=== PATIENT | male | born 1955 | race Caucasian/White ===

== ENCOUNTER 2020-03-06 12:21 | Outpatient (REF) | payer MEDICARE, SELFPAY ==
[2020-03-06 13:34] LABS: Prostate Specific Antigen 0.11 ng/mL (<0.05-4.0)
[2020-03-11 16:12] LABS: Testosterone, Free 47.7 pg/mL (35.0-155.0); Testosterone, Total 329 ng/dL (250-1100)
== END 2020-03-06 12:22 | disposition home or self-care (01) ==
LOC: HO.LAB 12:21
PROVIDERS: PCP Internal Medicine; Visit Provider Urology
DX: R33.9 Retention of urine, unspecified (principal)
CPT/HCPCS: 84153; 84402; 84403

== ENCOUNTER 2020-06-20 06:28 | Outpatient (REF) | payer MEDICARE, SELFPAY ==
[2020-06-20 07:23] LABS: Hematocrit 38.3 % (42-52); Hemoglobin 12.6 g/dl (14.0-18.0); Mean Corpuscular HGB Conc 32.9 g/dl (31.0-36.0); Mean Corpuscular Hemoglobin 30.6 pg (27.0-33.0); Mean Platelet Volume 9.4 fL (9.4-12.4); Platelet Count 272 X10*3/uL (160-400); Red Blood Count 4.12 X10*6/uL (4.60-5.80); Red Cell Distribution Width 13.9 % (11.0-16.0); White Blood Count 4.7 X10*3/uL (4.8-10.8)
[2020-06-20 08:15] LABS: Alanine Aminotransferase 16 U/L (0-40); Alkaline Phosphatase 74 U/L (39-117); Anion Gap 14 (12-20); Aspartate Amino Transferase 19 U/L (5-37); Bilirubin Direct 0.3 mg/dL (0.0-0.5); Blood Urea Nitrogen 21 mg/dL (9-16); Calcium 8.8 mg/dL (8.4-10.2); Carbon Dioxide 27 mmol/L (22-29); Chloride 102 mmol/L (96-108); Cholesterol 160 mg/dL; Estimated Glomerular Filt Rate > 60; Glucose Random 124 mg/dL (60-115); HDL Cholesterol 55 mg/dL; LDL Cholesterol Calculated 85 mg/dl; Potassium 4.2 mmol/l (3.3-5.1); Sodium 139 mmol/L (135-145); Total Protein 6.6 g/dL (6.5-8.0); Triglycerides 102 mg/dL
[2020-06-20 08:24] LABS: Thyroid Stimulating Hormone 3.33 uIU/mL (0.32-4.0)
== END 2020-06-20 06:29 | disposition home or self-care (01) ==
LOC: HO.LAB 06:28
PROVIDERS: PCP Internal Medicine; Visit Provider Internal Medicine
DX: E78.5 Hyperlipidemia, unspecified (principal); I10 Essential (primary) hypertension; R73.02 Impaired glucose tolerance (oral)
CPT/HCPCS: 36415; 80048; 80061; 80076; 84443; 85027

== ENCOUNTER 2021-01-05 12:56 | Outpatient (REF) | payer MEDICARE, SELFPAY ==
[2021-01-05 14:08] LABS: Prostate Specific Antigen 0.26 ng/mL (<0.05-4.0)
[2021-01-12 12:01] LABS: Testosterone, Total 338 ng/dL (250-1100)
== END 2021-01-05 12:57 | disposition home or self-care (01) ==
LOC: HO.LAB 12:56
PROVIDERS: PCP Internal Medicine; Visit Provider Urology
DX: C61 Malignant neoplasm of prostate (principal)
CPT/HCPCS: 36415; 84153; 84403

== ENCOUNTER 2021-06-25 10:37 | Outpatient (REF) | payer MEDICARE, SELFPAY ==
[2021-06-25 12:06] LABS: Hematocrit 36.5 % (42.0-52.0); Hemoglobin 11.9 g/dl (14.0-18.0); Mean Corpuscular HGB Conc 32.6 g/dl (31.0-36.0); Mean Corpuscular Hemoglobin 30.7 pg (27.0-33.0); Mean Corpuscular Volume 94.3 fL (80.0-98.0); Mean Platelet Volume 9.7 fL (9.4-12.4); Platelet Count 253 X10*3/uL (160-400); Red Blood Count 3.87 X10*6/uL (4.60-5.80); Red Cell Distribution Width 13.8 % (11.0-16.0); White Blood Count 5.1 X10*3/uL (4.8-10.8)
[2021-06-25 12:34] LABS: Alanine Aminotransferase 22 U/L (0-40); Albumin Level 3.9 g/dL (3.5-5.0); Alkaline Phosphatase 71 U/L (39-117); Anion Gap 10 (12-20); Aspartate Amino Transferase 19 U/L (5-37); Bilirubin Direct 0.3 mg/dL (0.0-0.5); Bilirubin Total 0.6 mg/dL (0.0-1.0); Blood Urea Nitrogen 14 mg/dL (9-16); Carbon Dioxide 30 mmol/L (22-29); Chloride 104 mmol/L (96-108); Cholesterol 154 mg/dL; Estimated Glomerular Filt Rate > 60; Glucose Random 106 mg/dL (60-115); HDL Cholesterol 52 mg/dL; LDL Cholesterol Calculated 89 mg/dl; Potassium 3.9 mmol/L (3.3-5.1); Sodium 140 mmol/L (135-145); Total Protein 6.4 g/dL (6.5-8.0); Triglycerides 67 mg/dL
[2021-06-25 12:56] LABS: Thyroid Stimulating Hormone 2.34 uIU/mL (0.32-4.0)
[2021-06-25 13:00] LABS: Appearance Urine CLEAR; Color Urine YELLOW; Glucose Urine UA NEG (NEG); Leukocyte Esterase Urine NEG (NEG); Nitrite Urine NEG (NEG); Urine Blood NEG (NEG); Urine Ketones NEG (NEG); Urine Protein NEG (NEG-TRACE)
== END 2021-06-25 10:38 | disposition home or self-care (01) ==
LOC: HO.LAB 10:37
PROVIDERS: PCP Internal Medicine; Visit Provider Internal Medicine
DX: E78.00 Pure hypercholesterolemia, unspecified (principal); I10 Essential (primary) hypertension
CPT/HCPCS: 36415; 80048; 80061; 80076; 81003; 84443; 85027

== ENCOUNTER 2022-03-15 13:33 | Outpatient (REF) | payer MEDICARE, SELFPAY ==
[2022-03-15 14:58] LABS: Prostate Specific Antigen 0.29 ng/mL (<0.05-4.0)
== END 2022-03-15 13:34 | disposition home or self-care (01) ==
LOC: HO.LAB 13:33
PROVIDERS: PCP Internal Medicine; Visit Provider Urology
DX: Z12.5 Encounter for screening for malignant neoplasm of prostate (principal); C61 Malignant neoplasm of prostate
CPT/HCPCS: 36415; 84153

== ENCOUNTER 2022-07-04 10:38 | Outpatient (REF) | payer MEDICARE, SELFPAY ==
[2022-07-04 12:23] LABS: Hematocrit 36.5 % (42.0-52.0); Hemoglobin 12.3 g/dl (14.0-18.0); Mean Corpuscular HGB Conc 33.7 g/dl (31.0-36.0); Mean Corpuscular Hemoglobin 30.9 pg (27.0-33.0); Mean Corpuscular Volume 91.7 fL (80.0-98.0); Mean Platelet Volume 9.3 fL (9.4-12.4); Platelet Count 260 X10*3/uL (160-400); Red Blood Count 3.98 X10*6/uL (4.60-5.80); Red Cell Distribution Width 14.1 % (11.0-16.0); White Blood Count 5.3 X10*3/uL (4.8-10.8)
[2022-07-04 13:10] LABS: Alanine Aminotransferase 23 U/L (0-40); Albumin Level 4.2 g/dL (3.5-5.0); Alkaline Phosphatase 75 U/L (39-117); Anion Gap 15 (12-20); Aspartate Amino Transferase 23 U/L (5-37); Bilirubin Direct 0.3 mg/dL (0.0-0.5); Blood Urea Nitrogen 21 mg/dL (9-16); Calcium 9.2 mg/dL (8.4-10.2); Carbon Dioxide 28 mmol/L (22-29); Chloride 105 mmol/L (96-108); Cholesterol 181 mg/dL; Estimated Glomerular Filt Rate > 60; Glucose Random 105 mg/dL (60-115); HDL Cholesterol 63 mg/dL; LDL Cholesterol Calculated 107 mg/dl; Potassium 4.4 mmol/L (3.3-5.1); Sodium 144 mmol/L (135-145); Total Protein 6.7 g/dL (6.5-8.0); Triglycerides 59 mg/dL
[2022-07-04 13:15] LABS: Prostate Specific Antigen Scr 0.31 ng/mL (<0.05-4.0); Thyroid Stimulating Hormone 2.38 uIU/mL (0.32-4.0)
== END 2022-07-04 10:39 | disposition home or self-care (01) ==
LOC: HO.LAB 10:38
PROVIDERS: PCP Internal Medicine; Visit Provider Internal Medicine
DX: Z12.5 Encounter for screening for malignant neoplasm of prostate (principal); E78.00 Pure hypercholesterolemia, unspecified; I10 Essential (primary) hypertension; C61 Malignant neoplasm of prostate
CPT/HCPCS: 36415; 80048; 80061; 80076; 84153; 84443; 85027

== ENCOUNTER 2023-01-09 10:08 | Outpatient (AMB) | payer MEDICARE, SELFPAY ==
--- NOTE | 2023-01-09 10:16 | A.OFFPC_ITS ---
Vital Signs 01/09/23 10:18 Height 5 ft 10 in Weight 182 lb 6 oz BMI 26.2 BP 130/78 Blood Pressure Location Lt brachial Position Sitting Pulse 63 Pulse Source Pulse Oximeter Pulse Oximetry (%) 99 Oxygen Delivery Method Room Air Intake Visit Reasons: Hypertension Intake Note: Patient is here to follow up on HTN. Medical Lab Director Required: No Pearl Digger: Not Required per policy Accompanied by: Self / Same As Patient Allergies No Known Allergies Allergy (Verified 01/13/23 06:15) Medication List - Last Reconciled 01/13/23 by Demario Begum MD amlodipine 5 mg PO DAILY 30 days atorvastatin 80 mg PO DAILY blood pressure test kit-medium As directed lisinopril-hydrochlorothiazide 20-25 mg 1 tab PO DAILY metoprolol succinate ER 50 mg PO DAILY Tobacco use date assessed: 01/09/23 Fall risk assessment: No Falls in past year Last assessed Fall Risk: 01/09/23 Dental Screening Dental Screen Date: 01/09/23 Did you have a dental visit in the last 12 months?: Yes Did you have a dental problem in the last 6 months where you did not have access to dental care?: No Was dental information given to patient?: Patient has dentist HPI Hypertension HPI Details 67-year-old male presents to the office to discuss his chronic medical conditions. Patient is compliant with all his medications and reporting no side effects. Able to function and do all activities of daily living. Patient does not check his blood pressures often at home. He does have history of left hip pain and may require surgery in future. [facility] Medical History (Updated 01/13/23 @ 06:20 by Demario Begum MD) Essential (primary) hypertension Hip arthritis Hypercholesterolemia Prostate cancer Surgical History History of bilateral cataract extraction History of cervical spinal surgery History of colonoscopy History of tonsillectomy S/P right coronary artery (RCA) stent placement Family History Father No problems noted. Mother Breast cancer Heart disease Brother In good health Son In good health Social History Housing: House Alcohol intake: current Alcohol intake frequency: a few times a week Patient Tobacco Use Status: Former Tobacco user Tobacco use type: Cigarette e-Cigarette/Vaping Use: Never Used Second Hand Smoke Exposure: Yes service: No Current occupational status: retired Cognitive needs: No Hearing needs: No Vision needs: No Questionnaire Thrive Questionnaire Date Thrive assessed: 07/11/22 VITO-7 AMB Questionnaire VITO-7 Date VITO - 7 assessed: 07/11/22 Source: Developed by Drs. Dheeraj Francis, Brenna Golden, Sean Fritz and colleagues, with an educational luzmaria from [employer]. Physical exam (Primary Care) Vital Signs: Last Vital Signs Pulse 63 01/09/23 10:18 BP 130/78 01/09/23 10:18 Pulse Ox 99 01/09/23 10:18 Oxygen Delivery Method Room Air 01/09/23 10:18 Care Plan Goal for BP management: Blood pressure is in range. Continue medications at same dosage. BMI result Body Mass Index 26.2 Tobacco/Smoking Status: Tobacco use Status Tobacco use date assessed 01/09/23 01/09/23 10:19 Patient Tobacco Use Status Former Tobacco user 01/09/23 10:19 Tobacco use type Cigarette 01/09/23 10:19 e-Cigarette/Vaping Use Never Used 01/09/23 10:19 Thrive Assessment: Date of Thrive Assessment Date Thrive assessed 07/11/22 01/09/23 10:19 Advance Care Planning discussion: Exists, not on file Date of discussion: 01/09/23 Who was present: Patient. Forms completed: Health Care Proxy and MOLST Actual minutes spent: 5 Const General: cooperative, healthy appearing and comfortable HENNM Head: Yes normal to inspection and Yes atraumatic Eyes General: appearance normal, both eyes and all related structures Neck Neck: Yes normal visual inspection and Yes full ROM Chest Chest palpation & inspection: normal inspection of the chest Resp Effort & Inspection: normal respiratory effort Auscultation: clear to auscultation bilaterally Cardio Jugular venous distension: no JVD Palpation: normal PMI Rate: regular rate Heart sounds: S1 normal heart sound present and S2 normal heart sound present GI Palpation (GI): Soft to palpation and No hepatosplenomegaly present Extrem General: Yes normal to inspection and Yes full ROM Assessment and Plan Assessment & Plan (1) Hip arthritis: Code(s): M16.10 - Unilateral primary osteoarthritis, unspecified hip Plan: This condition is stable at the moment. Not interfering in his quality of life. Patient was advised to use Tylenol intermittently. (2) Essential (primary) hypertension: Code(s): I10 - Essential (primary) hypertension Plan: Blood pressure is in range. Continue medications at same dosage. (3) Hypercholesterolemia: Code(s): E78.00 - Pure hypercholesterolemia, unspecified Plan: LDL is in range. Continue medications at same dosage. (4) Prostate cancer: Code(s): C61 - Malignant neoplasm of prostate Plan: This condition is being evaluated by his urologist. Coding Level of Care Code Est Pt Level 4 (31936) Diagnoses Hip arthritis M16.10 Essential (primary) hypertension I10 Hypercholesterolemia E78.00 Prostate cancer C61 Additional Codes Vital Signs *Quality* - Advance Care Planning discussion: Exists, not on file ([id number])
[2023-01-09 10:18] VITALS: BP 130/78; PULSE 63; O2SAT 99; BMI 26.2
== END 2023-01-09 11:05 | disposition home or self-care (01) ==
PROVIDERS: PCP Internal Medicine; Visit Provider Internal Medicine
DX: M16.10 Unilateral primary osteoarthritis, unspecified hip (principal); I10 Essential (primary) hypertension; E78.00 Pure hypercholesterolemia, unspecified; C61 Malignant neoplasm of prostate; Z00.00 Encounter for general adult medical examination without abnormal findings
CPT/HCPCS: 1123F; 99214

== ENCOUNTER 2023-07-31 07:45 | Outpatient (AMB) | payer MEDICARE, SELFPAY ==
--- NOTE | 2023-07-31 07:55 | A.OFFVIS_ITS ---
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 [facility] Medical History Hip arthritis Hypercholesterolemia Prostate cancer Essential (primary) hypertension Surgical History History of colonoscopy S/P right coronary artery (RCA) stent placement History of cervical spinal surgery History of bilateral cataract extraction History of tonsillectomy Family History Father No problems noted. Mother Breast cancer Heart disease Brother In good health Son In good health Social History Housing: House Alcohol intake: current Alcohol intake frequency: a few times a week Patient Tobacco Use Status: Former Tobacco user Tobacco use type: Cigarette e-Cigarette/Vaping Use: Never Used Second Hand Smoke Exposure: Yes service: No Current occupational status: retired Cognitive needs: No Hearing needs: No Vision needs: No Questionnaire Medicare Wellness Checkup [age] What gender do you identify with?: male During the past 4 weeks, how much have you been bothered by emotional problems such as feeling anxious, depressed, irritable, sad or downhearted, and blue?: not at all During the past 4 weeks, has your physical & emotional health limited your social activities with family, friends, neighbors, or groups?: slightly During the past 4 weeks, how much bodily pain have you generally had?: mild pain During the past 4 weeks, was someone available to help you if you needed & wanted help?: yes, as much as I wanted During the past 4 weeks, what was the hardest physical activity you could do for at least 2 minutes?: very light Can you get to places out of walking distance without help? (For eg., can you travel alone on buses, taxis or drive your car?): Yes Can you go shopping for groceries or clothes without someone's help?: Yes Can you prepare your own meals?: Yes Can you do your housework without help?: Yes Because of any health problems, do you need the help of another person with your personal care needs such as eating, bathing, dressing or getting around the house?: No Can you handle your own money without help?: Yes During the past 4 weeks, how would you rate your health in general?: good During the past 4 weeks how have things been going for you?: pretty well Are you having difficulties driving your car?: no Do you always fasten your seat belt when you are in a car?: yes, usually During past 4 weeks, have you been bothered by the following: never: Falling or dizzy when standing up, Sexual problems?, Trouble eating well?, Teeth or denture problems? and Problems using the telephone? and seldom: Tiredness or fatigue? Have you fallen 2 or more times in the past year?: No Are you afraid of falling?: No Are you a smoker?: no During the past 4 weeks, how many drinks of wine, beer, or other alcoholic beverages did you have?: 2-5 drinks per week Do you exercise for about 20 minutes 3 or more times a week?: yes, most of the time Have you been given information to help with the following?: no: Hazards in your house that might hurt you? and no: Keeping track of your medications? How often do you have trouble taking medicines the way you have been told to take them?: I always take medicine as prescribed How confident are you that you can control & manage most of your health problems?: very confident What is your race?: White Mini Mental State Exam (MMSE) Orientation What is the (year) (season) (date) (day) (month)?: year, season, date and day Score Score: 4 Activity of Daily Living Bathing - sponge bath, tub bath or shower: receives no assistance (gets in/out by self, if usual bathing means Dressing - getting clothes from closets & drawers, including inner/outer garments & fasteners.: gets clothes & gets completely dressed without help Toileting - going to the 'toilet room' for urine/bowel elimination & cleaning self/arranging clothes: goes to toilet room, cleans self, arranges clothes without help Transfer: moves in & out of bed and chair without help (may use support object) Continence: controls urination/bowel movements completely by self Feeding: feeds self without help Total Score: 0 Information obtained from: patient Using telephone: independent Traveling: independent Shopping: independent Preparing meals: independent Housework: independent Taking medicine: independent Managing money: independent PHQ-9 Over the last 2 weeks, how often have you been bothered by any of the following problems? 1. Little interest or pleasure in doing things: not at all 2. Feeling down, depressed, or hopeless: not at all 3. Trouble falling or staying asleep, or sleeping too much: not at all 4. Feeling tired or having little energy: not at all 5. Poor appetite or overeating: not at all 6. Feeling bad about yourself - or that you are a failure or have let yourself or your family down: not at all 7. Trouble concentrating on things, such as reading the newspaper or watching television: not at all 8. Moving or speaking so slowly that other people could have noticed. Or the opposite - being so fidgety or restless that you have been moving around a lot more than usual: not at all 9. Thoughts that you would be better off or of hurting yourself in some way: not at all Total score: 0 Source: Developed by Drs. Dheeraj Francis, Brenna Golden, Sean Fritz and colleagues, with an educational luzmaria from [employer]. AUDIT C Alcohol Use Questionnaire (AUDIT-C) 1. How often do you have a drink containing alcohol?: 2-4 times a month 2. How many drinks containing alcohol do you have on a typical day when you are drinking?: 1 or 2 3. How often do you have six or more drinks on one occasion?: Never Total Score: 2 Thrive Questionnaire Date Thrive assessed: 07/31/23 I am a: Patient What is your living situation today?: I have a steady place to live Within the past 12 months, did the food you bought not last and you didn't have the money to get more?: Never true Within the past 12 months, did you worry whether your food would run out before you got money to buy more?: Never true Do you have trouble paying for medicines?: No Do you have trouble getting transportation to medical appointments?: No Do you have trouble paying your heating and electricity bill?: No Do you have trouble taking care of your child, family member or friend?: No Do you have trouble with day-to-day activities such as bathing, preparing meals, shopping, managing finances, etc.?: No Are you currently unemployed and looking for a job?: No Are you interested in more education?: No Please select the resources that you would like help with: None Currently or been in a relationship where the following occur: no concerns reported THRIVE Score: 0 Fall Risk Assessment Fall Risk Assessment Fall risk assessment: 1 Fall in past year VITO-7 AMB Questionnaire VITO-7 Date VITO - 7 assessed: 07/31/23 Feeling nervous, anxious, or on edge: 0 = Not at all Not being able to stop or control worryin = Not at all Worrying too much about different things: 0 = Not at all Trouble relaxin = Not at all Being so restless that it is hard to sit still: 0 = Not at all Becoming easily annoyed or irritable: 0 = Not at all Feeling afraid as if something awful might happen: 0 = Not at all Total VITO-7 score (0-4 normal; 5-9 mild; 10-14 moderate; 15-21 severe): 0 Source: Developed by Drs. Dheeraj Francis, Brenna Golden, Sean Fritz and colleagues, with an educational luzmaria from [employer]. Physical Exam Vital Signs: Last Vital Signs Pulse 76 07/31/23 07:57 BP 130/74 07/31/23 07:57 Pulse Ox 98 07/31/23 07:57 Oxygen Delivery Method Room Air 07/31/23 07:57 BMI result Body Mass Index 26.3 Balance: Normal Romberg: Negative Tandem Walk: Able to Walk and Turn: Able to Rise from sit to stand: Able to Hearing Whisper test: Pass Assessment & Plan Assessment & Plan (1) Prostate cancer: Code(s): C61 - Malignant neoplasm of prostate Plan: Patient sees a urologist (2) Hypercholesterolemia: Code(s): E78.00 - Pure hypercholesterolemia, unspecified Plan: Blood work has been ordered. Patient has been encouraged to get it done. He would like to go to [place] to get the blood work done. (3) Essential (primary) hypertension: Code(s): I10 - Essential (primary) hypertension Plan: Blood pressure is in range. Continue current medications. (4) Adult general medical exam: Code(s): Z00.00 - Encounter for general adult medical examination without abnormal findings Plan: Blood work has been ordered. Quality Reporting (2019) Fall Risk Screening ([facility] 139) Fall risk assessment: 1 Fall in past year Depression/Bipolar (159/160/161/177) PHQ-9: Total score: 0 Coding Level of Care Code Medicare Subsequent (G0439) Diagnoses Prostate cancer C61 Hypercholesterolemia E78.00 Essential (primary) hypertension I10 Adult general medical exam Z00.00
[2023-07-31 07:57] VITALS: BP 130/74; PULSE 76; O2SAT 98; BMI 26.3
== END 2023-07-31 08:17 | disposition home or self-care (01) ==
PROVIDERS: PCP Internal Medicine; Visit Provider Internal Medicine
DX: C61 Malignant neoplasm of prostate (principal); E78.00 Pure hypercholesterolemia, unspecified; I10 Essential (primary) hypertension; Z00.00 Encounter for general adult medical examination without abnormal findings
CPT/HCPCS: G0439

== ENCOUNTER 2024-07-29 10:04 | Outpatient (REF) | payer MEDICARE, SELFPAY ==
[2024-07-29 11:17] LABS: Hematocrit 35.6 % (42.0-52.0); Hemoglobin 12.1 g/dl (14.0-18.0); Mean Corpuscular Hemoglobin 31.3 pg (27.0-33.0); Mean Platelet Volume 9.6 fL (9.4-12.4); Platelet Count 257 X10*3/uL (160-400); Red Blood Count 3.87 X10*6/uL (4.60-5.80); Red Cell Distribution Width 13.6 % (11.0-16.0); White Blood Count 4.7 X10*3/uL (4.8-10.8)
[2024-07-29 11:45] LABS: Appearance Urine Clear; Color Urine Yellow; Glucose Urine UA Negative (Negative); Leukocyte Esterase Urine Negative (Negative); Nitrite Urine Negative (Negative); PH 5.5 (5.0-9.0); Urine Blood Negative (Negative); Urine Ketones Negative (Negative); Urine Protein Negative (Neg-Trace)
[2024-07-29 12:05] LABS: Alanine Aminotransferase 24 U/L (0-40); Alkaline Phosphatase 75 U/L (39-117); Anion Gap 12 (12-20); Aspartate Amino Transferase 26 U/L (5-37); Bilirubin Direct 0.3 mg/dL (0.0-0.5); Blood Urea Nitrogen 21 mg/dL (9-16); Calcium 9.2 mg/dL (8.4-10.2); Carbon Dioxide 26 mmol/L (22-29); Chloride 106 mmol/L (96-108); Cholesterol 152 mg/dL (<200); Estimated Glomerular Filt Rate > 60; Glucose Random 104 mg/dL (60-115); HDL Cholesterol 54 mg/dL (>40); LDL Cholesterol Calculated 85 mg/dL (<100); Potassium 3.9 mmol/L (3.3-5.1); Sodium 140 mmol/L (135-145); Triglycerides 67 mg/dL (<150)
[2024-07-29 12:06] LABS: Prostate Specific Antigen Scr 0.24 ng/mL (<0.05-4.0)
== END 2024-07-29 10:05 | disposition home or self-care (01) ==
LOC: HO.LAB 10:04
PROVIDERS: PCP Internal Medicine; Visit Provider Internal Medicine
DX: E78.00 Pure hypercholesterolemia, unspecified (principal); I10 Essential (primary) hypertension; Z12.5 Encounter for screening for malignant neoplasm of prostate
CPT/HCPCS: 36415; 80048; 80061; 80076; 81003; 84153; 84443; 85027

== ENCOUNTER 2024-08-05 10:34 | Outpatient (AMB) | payer MEDICARE, SELFPAY ==
--- NOTE | 2024-08-05 11:06 | AM.OFFVISMDC ---
Intake Vital Signs 08/05/24 11:07 Height 5 ft 10 in Weight 182 lb BMI 26.1 BP 130/72 Blood Pressure Location Lt brachial Position Sitting Pulse 66 Pulse Source Pulse Oximeter Pulse Oximetry (%) 98 Oxygen Delivery Method Room Air Intake Visit Reasons: AWV/Ear Cleaning Web Content Director Required: No Accompanied by: Self / Same As Patient Allergies No Known Allergies Allergy (Verified 08/05/24 11:13) Medication List - Last Reconciled 08/05/24 by Rachel Zapata PA-C amlodipine 5 mg PO DAILY 30 days atorvastatin 80 mg PO DAILY blood pressure test kit-medium As directed lisinopril-hydrochlorothiazide 20-25 mg 1 tab PO DAILY metoprolol succinate ER 50 mg PO DAILY HPI HPI Comments History of Present Illness Details Patient is here for an Annual Wellness Visit today. List of all patient's Health Care Provider's PCP Dr. Begum Urologist [facility] urology unsure of the doctor's name Patient sees repair servicer at [facility] unsure of the doctor's name Reviewed past medical history- yes Reviewed surgical / hospitalization history- yes Reviewed family history- yes Reviewed current medications- yes Review all current providers patient is actively being followed by- yes Risk Factors Do exercise? Yes How many days per week? 5-6 Minutes per episode? 1 hour Do you larry regularly? yes Do go to the dentist yearly? yes just went yesterday or every 6 months? yes Do use a seatbelt in the vehicle? yes Sexual health: Do you use protection such as condom's? yes Home safety Throw rugs? Yes Grab bars? Yes in the shower Raised toilet seat? No Working smoke detectors? Yes Activities of daily living Do you have urinary incontinence? no Difficulty bathing or showering? No ?Difficulty dressing??No ?Difficulty grooming? No ?Difficulty feeding myself? No ?Difficulty using the toilet??No ?Difficulty getting in and out of bed??No ?Difficulty walking? No ?Receives help from other person's with any of the above tasks??No Instrumental activities of daily living Uses telephone -?Yes ?Gets to place out of walking distance- yes ?Who does the Food preparation?? patient prepares his own food or his ?Who goes shopping for groceries? pain both patient and his ?Can perform minor home maintenance-? both patient and his ?Can perform own laundry-? both patient and his ?Can perform own housework- both patient and ?Manages own money/Finances-? both patient and ?Transportation?? patient has his own car ?Do you Drive?? yes ?Do you Drive at Night?? yes ?Can you Manage own medications? yes If you can not manage your own medications, who does manage your medications?? patient can manage his own medications Fall risk assessment Fall risk? right no recent falls patient is not a fall risk Have you had any falls with injuries in the past year? no falls in the past year Have you had 2 or more falls in the past year? no falls in the past few Fall risk assessment: Visit History Last Wellness Visit: Date? If diabetic, last diabetic eye exam: Date? patient is not a diabetic Last hospitalization: If any? no recent hospitalizations Additonal Services needed/Case Management Referrals? Social? no Financial? no Medical referrals? no Education? Asthma? no COPD? no Diabetes? no Medication management? no Cognitive Status is Normal End of life planning Discussed advanced directives- Yes Member did not wish to discuss above? HCP: Imelda Schmitt Advanced directives on file? Not on file yet Discussed wishes expressed in advanced directives? patient undecided at this time Encouraged member to inform others about care preferences. [facility] Medical History (Updated 08/05/24 @ 13:13 by Rachel Zapata PA-C) Cerumen impaction Encounter for annual wellness exam in Medicare patient Hip arthritis Hypercholesterolemia Prostate cancer Essential (primary) hypertension Surgical History History of colonoscopy (~06/2021) S/P right coronary artery (RCA) stent placement History of cervical spinal surgery History of bilateral cataract extraction History of tonsillectomy Family History Father No problems noted. Mother Breast cancer Heart disease Brother In good health Son In good health Social History Housing: House Alcohol intake: current Alcohol intake frequency: a few times a week Patient Tobacco Use Status: Former Tobacco user Tobacco use type: Cigarette e-Cigarette/Vaping Use: Never Used Second Hand Smoke Exposure: Yes service: No Current occupational status: retired Cognitive needs: No Hearing needs: No Vision needs: No Questionnaire Medicare Wellness Checkup [age] What gender do you identify with?: male During the past 4 weeks, how much have you been bothered by emotional problems such as feeling anxious, depressed, irritable, sad or downhearted, and blue?: not at all During the past 4 weeks, has your physical & emotional health limited your social activities with family, friends, neighbors, or groups?: not at all During the past 4 weeks, how much bodily pain have you generally had?: no pain During the past 4 weeks, was someone available to help you if you needed & wanted help?: yes, as much as I wanted During the past 4 weeks, what was the hardest physical activity you could do for at least 2 minutes?: heavy Can you get to places out of walking distance without help? (For eg., can you travel alone on buses, taxis or drive your car?): Yes Can you go shopping for groceries or clothes without someone's help?: Yes Can you prepare your own meals?: Yes Can you do your housework without help?: Yes Because of any health problems, do you need the help of another person with your personal care needs such as eating, bathing, dressing or getting around the house?: No Can you handle your own money without help?: Yes During the past 4 weeks, how would you rate your health in general?: very good During the past 4 weeks how have things been going for you?: very well; could hardly better Are you having difficulties driving your car?: no Do you always fasten your seat belt when you are in a car?: yes, usually During past 4 weeks, have you been bothered by the following: never: Falling or dizzy when standing up, Sexual problems?, Trouble eating well?, Teeth or denture problems?, Problems using the telephone? and Tiredness or fatigue? Have you fallen 2 or more times in the past year?: No Are you afraid of falling?: No Are you a smoker?: no During the past 4 weeks, how many drinks of wine, beer, or other alcoholic beverages did you have?: 2-5 drinks per week Do you exercise for about 20 minutes 3 or more times a week?: yes, most of the time Have you been given information to help with the following?: yes: Keeping track of your medications? and no: Hazards in your house that might hurt you? How often do you have trouble taking medicines the way you have been told to take them?: I always take medicine as prescribed How confident are you that you can control & manage most of your health problems?: very confident What is your race?: White Mini Mental State Exam (MMSE) Orientation What is the (year) (season) (date) (day) (month)?: year, date, day and month Where are we (state) (county) (town or city) (hospital) (floor)?: hospital/clinic Registration Name of 3 unrelated objects clearly and slowly, then ask patient to repeat all 3 of them. (1st repeat determines score. Make sure they can repeat all three): object 1, object 2 and object 3 Attention & Calculation (CHOOSE ONE) Ask pt to begin with 100 & count backward by 7. Stop after 5 repeats. If pt cannot ask them to spell the word WORLD backward.: 93 Spell WORLD backwards (DLROW): 5 letters Recall Ask patient to repeat the 3 items from question #3.: object 1, object 2 and object 3 Language Show patient a wristwatch & ask what it is. Repeat for pencil.: pencil Ask the patient to repeat the phrase 'No ifs, ands, or buts' after you.: correct Ask the patient to 'take a piece of paper with their right hand' 'fold paper in half' 'place paper on floor': take paper in right hand, fold paper in half and place paper on floor Print the sentence 'CLOSE YOUR EYES' on a piece. If patient actually closes eyes then score.: followed written direction Give patient a blank piece of paper & ask to write a sentence. Score if it contains a noun & verb.: sentence contains subject and verb Ask patient to copy figure of intersecting pentagons exactly. Score if all 10 angles & 2 intersects are included.: all 10 angles present & 2 are intersected Score Score: 25 Activity of Daily Living Bathing - sponge bath, tub bath or shower: receives no assistance (gets in/out by self, if usual bathing means Dressing - getting clothes from closets & drawers, including inner/outer garments & fasteners.: gets clothes & gets completely dressed without help Toileting - going to the 'toilet room' for urine/bowel elimination & cleaning self/arranging clothes: goes to toilet room, cleans self, arranges clothes without help Transfer: moves in & out of bed and chair without help (may use support object) Continence: controls urination/bowel movements completely by self Feeding: feeds self without help Total Score: 0 Information obtained from: patient Using telephone: independent Traveling: independent Shopping: independent Preparing meals: independent Housework: independent Taking medicine: independent Managing money: independent PHQ-9 Over the last 2 weeks, how often have you been bothered by any of the following problems? 1. Little interest or pleasure in doing things: not at all 2. Feeling down, depressed, or hopeless: not at all 3. Trouble falling or staying asleep, or sleeping too much: not at all 4. Feeling tired or having little energy: not at all 5. Poor appetite or overeating: not at all 6. Feeling bad about yourself - or that you are a failure or have let yourself or your family down: not at all 7. Trouble concentrating on things, such as reading the newspaper or watching television: not at all 8. Moving or speaking so slowly that other people could have noticed. Or the opposite - being so fidgety or restless that you have been moving around a lot more than usual: not at all 9. Thoughts that you would be better off or of hurting yourself in some way: not at all Total score: 0 Depression Screening Interpretation: Negative Depression Screening Done: Yes 08380 - PHQ-9 Billing: Yes Source: Developed by Drs. Dheeraj Francis, Brenna Golden, Sean Fritz and colleagues, with an educational luzmaria from [employer]. Fall Risk Assessment Fall Risk Assessment Fall risk assessment: No Falls in past year AUDIT C Alcohol Use Questionnaire (AUDIT-C) 1. How often do you have a drink containing alcohol?: 2-3 times a week 2. How many drinks containing alcohol do you have on a typical day when you are drinking?: 1 or 2 3. How often do you have six or more drinks on one occasion?: Never Total Score: 3 Score Reviewed/Action Taken: No VITO-7 AMB Questionnaire VITO-7 Date VITO - 7 assessed: 08/05/24 Feeling nervous, anxious, or on edge: 0 = Not at all Not being able to stop or control worryin = Not at all Worrying too much about different things: 0 = Not at all Trouble relaxin = Not at all Being so restless that it is hard to sit still: 0 = Not at all Becoming easily annoyed or irritable: 0 = Not at all Feeling afraid as if something awful might happen: 0 = Not at all Total VITO-7 score (0-4 normal; 5-9 mild; 10-14 moderate; 15-21 severe): 0 Source: Developed by Drs. Dheeraj Francis, Brenna Golden, Sean Fritz and colleagues, with an educational luzmaria from [employer]. VITO-7 Assessment Billing VITO-7 Assessment Tool: VITO-7 Assessment 82697 Thrive Questionnaire Date Thrive assessed: 08/05/24 I am a: Patient What is your living situation today?: I have a steady place to live Within the past 12 months, did the food you bought not last and you didn't have the money to get more?: Never true Within the past 12 months, did you worry whether your food would run out before you got money to buy more?: Never true Do you have trouble paying for medicines?: No Do you have trouble getting transportation to medical appointments?: No Do you have trouble paying your heating and electricity bill?: No Do you have trouble taking care of your child, family member or friend?: No Do you have trouble with day-to-day activities such as bathing, preparing meals, shopping, managing finances, etc.?: No Are you currently unemployed and looking for a job?: No Are you interested in more education?: No Please select the resources that you would like help with: None Currently or been in a relationship where the following occur: No concerns reported THRIVE Score: 0 Review of Systems Const All systems reviewed & are unremarkable except as noted in HPI and below Physical Exam Vital Signs: Last Vital Signs Pulse 66 08/05/24 11:07 BP 130/72 08/05/24 11:07 Pulse Ox 98 08/05/24 11:07 Oxygen Delivery Method Room Air 08/05/24 11:07 BMI result Body Mass Index 26.1 HEENT Other: Hearing screening Whisper test- pass whisper test Eyes Other: vision screening- passed Other: urinary incontinence? No Neuro Other: balance- yes normal Romberg- yes normal tandem walk test- yes normal walk-in turned test- yes normal rise from sit to stand- yes normal Office Procedures Cerumen Removal From which ear canal was the cerumen removed: bilateral Removal: irrigation and otoscope w/curette Notes: patient tolerated procedure well [id number] Irrigation/Lavage (and with spoon curette-[id number]) Results AMB Hemoglobin A1c AMB Hemoglobin A1c 5.9 % Last Edit by ANIKA Bermudez on 08/05/24 11:55 Assessment & Plan Assessment & Plan (1) Encounter for annual wellness exam in Medicare patient: Code(s): Z00.00 - Encounter for general adult medical examination without abnormal findings (2) Basal cell carcinoma: Comment: s/p resection on back Code(s): C44.91 - Basal cell carcinoma of skin, unspecified Plan: Patient to continue being followed by [facility]. He is status post resection of 2 basal cell carcinomas. Condition is chronic and stable continue to monitor. (3) BPPV (benign paroxysmal positional vertigo): Code(s): H81.10 - Benign paroxysmal vertigo, unspecified ear Qualifiers: Laterality: bilateral Qualified Code(s): H81.13 - Benign paroxysmal vertigo, bilateral Plan: Patient denies any recent dizziness. Condition is chronic and stable continue to monitor. (4) Essential (primary) hypertension: Code(s): I10 - Essential (primary) hypertension Plan: Patient currently on amlodipine 5 mg daily, lisinopril -hydrochlorothiazide combo 25-25 mg daily, metoprolol extended release 50 mg. Blood pressure goal less than 130/80. Blood pressure at goal today. Condition is chronic and stable continue current regimen. (5) Hypercholesterolemia: Code(s): E78.00 - Pure hypercholesterolemia, unspecified Plan: Total cholesterol go less than 200. LDL goal <100. Total cholesterol on 07/29/2024 was 152. LDL was 85. At goal. Patient to continue atorvastatin 80 mg daily. Condition is chronic and stable continue to monitor. (6) Prostate cancer: Code(s): C61 - Malignant neoplasm of prostate Plan: Patient is being followed by [facility]. Condition is chronic and stable continue to monitor (7) Left ear hearing loss: Code(s): H91.92 - Unspecified hearing loss, left ear Qualifiers: Hearing loss type: sensorineural Contralateral hearing status: unspecified Qualified Code(s): H90.5 - Unspecified sensorineural hearing loss Plan: Condition is chronic and stable continue to monitor (8) Hip arthritis: Code(s): M16.10 - Unilateral primary osteoarthritis, unspecified hip Plan: Condition is chronic and stable continue to monitor (9) Cerumen impaction: Code(s): H61.20 - Impacted cerumen, unspecified ear Plan: patient is now status post bilateral cerumen impaction. Tympanic membranes post cerumen disimpaction visualized and intact not perforated. No complications. Patient tolerated procedure well. Plan Plan Patient was informed and verbally consented to the use of an ambient scribe for clinic note documentation during this visit. 1. Prostate Cancer - History The patient confirmed a history of prostate cancer. While there are no current complaints regarding this condition, I will continue to monitor his health closely during his annual wellness exams to ensure no recurrence or related complications. 2. Basal Cell Carcinoma The patient has a history of basal cell carcinoma located on the back and side of the back, which has yet to be excised. Hyperlipidemia: Content and Plan: The patient is on atorvastatin 80 mg daily, currently managing lipid levels, with recent cholesterol levels being well-managed. Anemia: Content and Plan: The patient has a history of chronic anemia but denied any symptoms such as black or bloody stools. Sexual Activity: Content and Plan: The patient is sexually active and engages in the use of condoms. He does not use control. Falls: Content and Plan: There are no reported recent falls within the past year. The patient is not identified as being at fall risk. End-of-life Planning: Content and Plan: Currently, the patient does not have advanced directives in place. However, he has identified his spouse, Ms. Imelda Schmitt, as his healthcare proxy. Control of Medical Resources: Content and Plan: The patient expressed that he does not currently feel the need for additional referrals for social work, finances, or medical resources. Problem Based Plan: - Prostate Cancer: Continue monitoring. - Follow-up with urologist at [facility] is ongoing. - History of removal of basal cell carcinoma with dermatology. - Maintain communication with regarding end-of-life preferences, including Full code or DNR/DNI status. - Essential Hypertension: Continue current medication regimen, including Amlodipine 5 mg, Atorvastatin 80 mg, Lisinopril/Hydrochlorothiazide 20/25 mg, and Metoprolol Extended-Release 50mg. - Hyperlipidemia: Continue taking Atorvastatin 80 mg. Lipid profile appears stable with good control. - Chronic Anemia: No acute concerns identified during the recent bloodwork. No reports of black or bloody stools. Monitor. 3. Hypertension The patient is currently on a regimen of amlodipine 5 mg, atorvastatin 80 mg, lisinopril 20/25 mg daily, and metoprolol 50 mg extended-release for the management of essential hypertension. The patient should seek to maintain regular follow-up appointments to ensure blood pressure remains well controlled. It is also beneficial for the patient to continue engaging in regular physical activity 5 to 6 times per week for approximately one hour per session. 4. Presence of artificial hip joint, bilateral The patient has a history of double hip replacement surgery. There are no current reports of complications, but the patient's mobility was assessed to ensure satisfactory recovery. I observed that the patient was able to stand up from a seated position without assistance and maintain normal balance during tandem walking. 5. Vertigo The patient has a history of experiencing episodes of vertigo. While no exacerbation was reported during the present evaluation, continued monitoring of balance is advised during wellness exams to ensure there are no occurrences of dizziness that might increase fall risk. Discussion Notes The consultation comprised a comprehensive annual wellness exam undertaken in compliance with insurance requirements. It involved a review of current medications, medical history, recent procedures, exercise habits, and home safety. The patient was informed about the importance of continuous compliance with his medical regimen to adequately manage existing conditions, including Essential Hypertension and Hyperlipidemia. Encouraged the patient to consider options for advance directives, and ensure that his healthcare proxy, Imelda Schmitt, is aware of his wishes regarding code status. The patient's bloodwork was reviewed, showing chronic anemia, which the patient acknowledged was longstanding, and it is recorded that he is not diabetic, though an updated A1c level was recommended to further assess this condition. Of note, the patient's PSA level for prostate cancer screening was found to be negative, which was communicated to him. Additional recommendations include maintaining his current exercise routine of 5-6 days per week for an hour each session, and to remain vigilant about fall prevention by installing additional grab bars in the home, especially in areas like the bathroom. Orders: Orders AMB Hemoglobin A1c Today Z13.9 - Encounter for screening, unspecified Patient Instructions: Patient Instructions - Continue taking Amlodipine 5 mg daily, Atorvastatin 80 mg, Lisinopril with Hydrochlorothiazide 20/25 mg, and Metoprolol Extended Release 50 mg as prescribed. - Maintain your current exercise regimen of five to six times a week, approximately one hour per session. - Continue to practice regular dental hygiene and visit the dentist regularly. - Ensure all medications are managed consistently as discussed. - Consider discussing end-of-life preference details with your for clarity on your wishes. - Stay aware of home safety, particularly with the presence of small rugs that could pose a trip hazard, although you currently have no fall risk. - A follow-up will be required for baseline HbA1c assessment, as previous records indicate last measurement was 5.8 in 2019. - Patient understanding confirmed. Quality Reporting (2019) Fall Risk Screening ([facility] 139) Fall risk assessment: No Falls in past year Depression/Bipolar (159/160/161/177) PHQ-9: Total score: 0 Coding Level of Care Code Medicare First (G0438) Est Pt Level 5 (35392) Diagnoses Encounter for annual wellness exam in Medicare patient Z00.00 Basal cell carcinoma C44.91 Benign paroxysmal positional vertigo due to bilateral vestibular disorder H81.13 Laterality: bilateral Essential (primary) hypertension I10 Hypercholesterolemia E78.00 Prostate cancer C61 Sensorineural hearing loss (SNHL) of left ear, unspecified hearing status on contralateral side H90.5 Hearing loss type: sensorineural Contralateral hearing status: unspecified Hip arthritis M16.10 Cerumen impaction H61.20 CPT Codes Advance Care Planning - Time spent: 1-15 minutes, on File ([id number]) Office Procedure - CPT: 72334-Gqg Irrigation/Lavage ([id number]) Additional Codes PHQ-9 - 48029 - PHQ-9 Billing: Yes ([id number]) VITO-7 Assessment Billing - VITO-7 Assessment Tool: VITO-7 Assessment 24729 ([id number]) Comment procedure was also performed for Cerumen disimpaction bilaterally Advance Care Planning Forms completed: Health Care Proxy ( patient reports his is his healthcare proxy. He reports he does not have a MOLST on file. He does have the paperwork does not need the paperwork again. He is not ready to make a decision at this time. I discussed with him DNR/DNI along with comfort care, a living will & being a full code) Time spent: 1-15 minutes, on File Did not discuss due to Cultural/Spiritual beliefs: No
[2024-08-05 11:07] VITALS: BP 130/72; PULSE 66; O2SAT 98; BMI 26.1
== END 2024-08-05 11:58 | disposition home or self-care (01) ==
LOC: HO.HMCH 10:35
PROVIDERS: PCP Internal Medicine; Visit Provider Physician Assistant Medical
DX: Z00.00 Encounter for general adult medical examination without abnormal findings (principal); H81.13 Benign paroxysmal vertigo, bilateral; C44.91 Basal cell carcinoma of skin, unspecified; C61 Malignant neoplasm of prostate; I10 Essential (primary) hypertension; E78.00 Pure hypercholesterolemia, unspecified; H90.5 Unspecified sensorineural hearing loss; M16.0 Bilateral primary osteoarthritis of hip; H61.23 Impacted cerumen, bilateral

== ENCOUNTER → 2024-08-05 10:34 | Outpatient (BNVA) | payer MEDICARE, SELFPAY | PROVIDERS: PCP Internal Medicine; Visit Provider Physician Assistant Medical | DX: Z00.01 Encounter for general adult medical examination with abnormal findings (principal); C44.91 Basal cell carcinoma of skin, unspecified; Z13.1 Encounter for screening for diabetes mellitus; H81.13 Benign paroxysmal vertigo, bilateral; I10 Essential (primary) hypertension; E78.00 Pure hypercholesterolemia, unspecified; C61 Malignant neoplasm of prostate; H90.5 Unspecified sensorineural hearing loss; M16.10 Unilateral primary osteoarthritis, unspecified hip; H61.23 Impacted cerumen, bilateral | CPT/HCPCS: 69210; 83036; 96127 ==

== ENCOUNTER 2025-02-09 15:17 | Outpatient (AMB) | payer MEDICARE, SELFPAY ==
--- NOTE | 2025-02-09 15:20 | MHC.PC.OV ---
Vital Signs 02/09/25 15:22 Height 5 ft 10 in Weight 177 lb 4 oz BMI 25.4 BP 120/68 Blood Pressure Location Lt brachial Position Sitting Pulse 69 Pulse Source Pulse Oximeter Temp 97.5 F Temp Source Temporal Artery Scan Pulse Oximetry (%) 96 Oxygen Delivery Method Room Air Intake Visit Reasons: ? biopsy - lesion under tongue Intake Note: Patient is here to follow up on ? Biopsy of lesion under tongue. 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 per policy Accompanied by: Self / Same As Patient Allergies No Known Allergies Allergy (Verified 02/09/25 15:22) Medication List - Last Reconciled 02/09/25 by Arlene Ivory MD amlodipine 5 mg PO DAILY 30 days atorvastatin 80 mg PO DAILY blood pressure test kit-medium As directed lisinopril-hydrochlorothiazide 20-25 mg 1 tab PO DAILY metoprolol succinate ER 50 mg PO DAILY Tobacco use date assessed: 02/09/25 Fall risk assessment: No Falls in past year Last assessed Fall Risk: 02/09/25 Dental Screening Dental Screen Date: 02/09/25 Did you have a dental visit in the last 12 months?: Yes Did you have a dental problem in the last 6 months where you did not have access to dental care?: No Was dental information given to patient?: Patient has dentist HPI HPI Comments History of Present Illness Details The patient is a 69-year-old male presenting with an oral lesion discovered by a dentist during a routine examination. The lesion is located under the tongue and appears white, possibly due to chronic irritation from the teeth. The patient expressed concern about the need for a biopsy and sought a second opinion due to the initial referral not accepting Medicare. The patient has a history of shoulder pain, for which he received a cortisone injection that did not alleviate the symptoms. He continues to experience pain and is seeking further management options. Patient denies night sweats, fever, chills, unintentional weight changes, smoking or alcohol use. [facility] Medical History (Updated 02/09/25 @ 15:43 by Arlene Ivory MD) Cerumen impaction Encounter for annual wellness exam in Medicare patient Hip arthritis Hypercholesterolemia Prostate cancer Essential (primary) hypertension Surgical History History of colonoscopy (~06/2021) S/P right coronary artery (RCA) stent placement History of cervical spinal surgery History of bilateral cataract extraction History of tonsillectomy Family History Father No problems noted. Mother Breast cancer Heart disease Brother In good health Son In good health Social History Housing: House Alcohol intake: current Alcohol intake frequency: a few times a week Patient Tobacco Use Status: Former Tobacco user Tobacco use type: Cigarette e-Cigarette/Vaping Use: Never Used Second Hand Smoke Exposure: Yes service: No Current occupational status: retired Cognitive needs: No Hearing needs: No Vision needs: Yes (Reading glasses) Questionnaire PHQ-9 Over the last 2 weeks, how often have you been bothered by any of the following problems? 1. Little interest or pleasure in doing things: not at all 2. Feeling down, depressed, or hopeless: not at all 3. Trouble falling or staying asleep, or sleeping too much: not at all 4. Feeling tired or having little energy: not at all 5. Poor appetite or overeating: not at all 6. Feeling bad about yourself - or that you are a failure or have let yourself or your family down: not at all 7. Trouble concentrating on things, such as reading the newspaper or watching television: not at all 8. Moving or speaking so slowly that other people could have noticed. Or the opposite - being so fidgety or restless that you have been moving around a lot more than usual: not at all 9. Thoughts that you would be better off or of hurting yourself in some way: not at all Total score: 0 Depression Screening Interpretation: Negative Depression Screening Done: Yes Source: Developed by Drs. Dheeraj Francis, Brenna Golden, Sean Fritz and colleagues, with an educational luzmaria from [employer]. Thrive Questionnaire Date Thrive assessed: 08/05/24 I am a: Patient What is your living situation today?: I have a steady place to live Within the past 12 months, did the food you bought not last and you didn't have the money to get more?: Never true Within the past 12 months, did you worry whether your food would run out before you got money to buy more?: Never true Do you have trouble paying for medicines?: No Do you have trouble getting transportation to medical appointments?: No Do you have trouble paying your heating and electricity bill?: No Do you have trouble taking care of your child, family member or friend?: No Do you have trouble with day-to-day activities such as bathing, preparing meals, shopping, managing finances, etc.?: No Are you currently unemployed and looking for a job?: No Are you interested in more education?: No Please select the resources that you would like help with: None Currently or been in a relationship where the following occur: No concerns reported THRIVE Score: 0 AUDIT C Alcohol Use Questionnaire (AUDIT-C) 1. How often do you have a drink containing alcohol?: 2-3 times a week 2. How many drinks containing alcohol do you have on a typical day when you are drinking?: 1 or 2 3. How often do you have six or more drinks on one occasion?: Never Total Score: 3 VITO-7 AMB Questionnaire VITO-7 Date VITO - 7 assessed: 08/05/24 Feeling nervous, anxious, or on edge: 0 = Not at all Not being able to stop or control worryin = Not at all Worrying too much about different things: 0 = Not at all Trouble relaxin = Not at all Being so restless that it is hard to sit still: 0 = Not at all Becoming easily annoyed or irritable: 0 = Not at all Feeling afraid as if something awful might happen: 0 = Not at all Total VITO-7 score (0-4 normal; 5-9 mild; 10-14 moderate; 15-21 severe): 0 Source: Developed by Drs. Dheeraj Francis, Brenna Golden, Sean Fritz and colleagues, with an educational luzmaria from [employer]. Review of Systems Const Details: Positives besides what was mentioned in HPI are in BOLD Constitutional: No Weight Change, No Fever, No Chills, No Night Sweats, No Fatigue, No Malaise ENT/Mouth: No Hearing Changes, No Ear Pain, No Nasal Congestion, No Sinus Pain, No Hoarseness, No sore throat, No Rhinorrhea, No Swallowing Difficulty Eyes: No Eye Pain, No Swelling, No Redness, No Foreign Body, No Discharge, No Vision Changes Cardiovascular: No Chest Pain, No SOB, No PND, No Dyspnea on Exertion, No Orthopnea, No Claudication, No Edema, No Palpitations Respiratory: No Cough, No Sputum, No Wheezing, No Smoke Exposure, No Dyspnea Gastrointestinal: No Nausea, No Vomiting, No Diarrhea, No Constipation, No Pain, No Heartburn, No Anorexia, No Dysphagia, No Hematochezia, No Melena, No Flatulence, No Jaundice Genitourinary: No Dysmenorrhea, No DUB, No Dyspareunia, No Dysuria, No Urinary Frequency, No Hematuria, No Urinary Incontinence, No Urgency, No Flank Pain, No Urinary Flow Changes, No Hesitancy Musculoskeletal: No Arthralgias, No Myalgias, No Joint Swelling, No Joint Stiffness, No Back Pain, No Neck Pain, No Injury History Skin: No Skin Lesions, No Pruritis, No Hair Changes, No Breast/Skin Changes, No Nipple Discharge Neuro: No Weakness, No Numbness, No Paresthesias, No Loss of Consciousness, No Syncope, No Dizziness, No Headache, No Coordination Changes, No Recent Falls Psych: No Anxiety/Panic, No Depression, No Insomnia, No Personality Changes, No Delusions, No Rumination, No SI/HI/AH/VH, No Social Issues, No Memory Changes, No Violence/Abuse Hx., No Eating Concerns Heme/Lymph: No Bruising, No Bleeding, No Transfusions History, No Lymphadenopathy Endocrine: No Polyuria, No Polydipsia, No Temperature Intolerance Physical exam (Primary Care) Vital Signs: Last Vital Signs Temp 97.5 F 02/09/25 15:22 Pulse 69 02/09/25 15:22 BP 120/68 02/09/25 15:22 Pulse Ox 96 02/09/25 15:22 Oxygen Delivery Method Room Air 02/09/25 15:22 BMI result Body Mass Index 25.4 Tobacco/Smoking Status: Tobacco use Status Tobacco use date assessed 02/09/25 02/09/25 15:27 Patient Tobacco Use Status Former Tobacco user 02/09/25 15:27 Tobacco use type Cigarette 02/09/25 15:27 e-Cigarette/Vaping Use Never Used 02/09/25 15:27 PHQ-9: PHQ-9 Score PHQ-9: Total score 0 02/09/25 15:27 Depression Screening Interpretation: Negative Thrive Assessment: Date of Thrive Assessment Date Thrive assessed 08/05/24 02/09/25 15:27 Currently or been in a relationship where the following occur: No concerns reported Const Other: Pertinent findings are in BOLD GENERAL APPEARANCE NAD, activity normal for age, well developed/ well nourished, no cyanosis, pallor, or diaphoresis. EYES lids/conjunctiva normal. EARS/NOSE/THROAT Mucous membranes moist, nares normal, lips/teeth normal uvula midline without oral pharyngeal erythema, exudate or swelling TMs normal bilaterally. No lymphangitis/lymphedema. HEAD/NECK normocephalic atraumatic, no facial trauma, neck is supple. RESPIRATORY respiratory effort normal, speaks in full sentences, no tripod position, no accessory muscle use. Lungs clear to auscultation without rhonchi, wheezes, rales CARDIAC Regular rate and rhythm, no edema. ABDOMINAL Soft, ND/NT. No evidence of fluid wave. No pulsatile masses on exam, rebound tenderness, Saravia sign or pain over Mcburney's point. MUSCLES/EXTREMITIES No abnormal range of motion, no swelling. SKIN Warm, pink and dry. No rashes, dermatoses, petechiae or lesions. NEUROLOGICAL Speech is clear and appropriate. Normal level of consciousness. Gait and coordination are normal. 5/5 strength in all extremities. PSYCH Normal mood and affect. Judgement/competence is appropriate Tongue: weight lesion under the left side of his tongue. No lymph nodes palpated. Coding Level of Care Code Est Pt Level 3 (96387) Diagnoses Tongue lesion K14.8 Assessment & Plan Assessment & Plan (1) Tongue lesion: Code(s): K14.8 - Other diseases of tongue Category: Medical Plan: ENT referral for their input on the need of a biopsy. Plan I discussed with the patient the appearance of the oral lesion, which seems to be due to chronic irritation from teeth, and the plan to refer him to an ENT specialist for further evaluation. I explained that the ENT would determine the necessity of a biopsy and reassured the patient that the lesion. Orders: Referrals Ear/Nose/Throat Referral K14.8 - Other diseases of tongue
[2025-02-09 15:22] VITALS: BP 120/68; PULSE 69; TEMP 36.4; O2SAT 96; BMI 25.4
== END 2025-02-09 15:41 | disposition home or self-care (01) ==
LOC: HO.HMCH 15:17
PROVIDERS: PCP Internal Medicine; Visit Provider Internal Medicine
DX: K14.8 Other diseases of tongue (principal)

== ENCOUNTER → 2025-02-09 15:17 | Outpatient (BNVA) | payer MEDICARE, SELFPAY | PROVIDERS: PCP Internal Medicine; Visit Provider Internal Medicine | DX: K14.8 Other diseases of tongue (principal) | CPT/HCPCS: 96127; 99212 ==

== ENCOUNTER 2025-04-29 11:33 | Outpatient (REF) | payer MEDICARE, SELFPAY ==
[2025-04-29 13:31] LABS: Prostate Specific Antigen 0.25 ng/mL (<0.05-4.0)
== END 2025-04-29 11:34 | disposition home or self-care (01) ==
LOC: HO.LAB 11:33
PROVIDERS: PCP Internal Medicine; Visit Provider Physician Assistant
DX: C61 Malignant neoplasm of prostate (principal); Z12.5 Encounter for screening for malignant neoplasm of prostate
CPT/HCPCS: 36415; 84153

== ENCOUNTER 2025-05-04 08:27 | Outpatient (REF) | payer MEDICARE, SELFPAY | END 2025-05-04 08:28 | LOC: HO.LAB 08:27 | PROVIDERS: PCP Internal Medicine; Visit Provider Urology | DX: N52.9 Male erectile dysfunction, unspecified (principal) | CPT/HCPCS: 36415; 84403 ==